=== PATIENT | female | born 1995 | race Caucasian/White ===

== ENCOUNTER 2018-03-07 14:02 | Emergency (ER) | payer MEDICAID ==
[~2018-03-07] VITALS: Ht 167.6 cm; Wt 83.0 kg
[2018-03-07 14:12] VITALS: BP 145/90; PULSE 100; RESP 18; Ht 167.6 cm; Wt 83.0 kg
[2018-03-07] MEDS ORDERED: AMOX500C2 PO (15:10)
[2018-03-07] MEDS ORDERED: IBUP-1542 PO (15:10)
[2018-03-07] MEDS ORDERED: CIPR7.5D BOTH EARS (15:11)
--- NOTE | 2018-03-07 15:40 | ERD ---
ER Documentation Chief Complaint Chief Complaint BILATERAL EAR PAIN WITH DISCHARGE X 3 WEEKS, REDUCED HEARING HPI This is a 23-year-old female with a nonsignificant past medical history presents ED with complaints of bilateral ear pain with discharge times 2 weeks. Patient admits to seeing a whitish discharge coming from bilateral ears. Denies fever, chills, sore throat, nausea, vomiting, diarrhea, constipation, congestion, cough, shortness of breath, trouble breathing no other symptoms. No known drug allergies. Has used eardrops with no relief. Requesting antibiotics pills ROS All systems reviewed and are negative except as per history of present illness. Medications Home Meds Active Scripts Ciprofloxacin Hcl/Dexameth (Ciprodex Otic Suspension) 7.5 Ml Drops.susp, 4 DROP BOTH EARS BID for 7 Days, EA Prov:PABLO WILDE PA-C 03/07/18 Ibuprofen* (Motrin*) 600 Mg Tab, 600 MG PO Q6, #30 TAB Prov:PABLO WILDE PA-C 03/07/18 Amoxicillin* (Amoxicillin*) 500 Mg Cap, 500 MG PO TID for 10 Days, CAP Prov:PABLO WILDE PA-C 03/07/18 Allergies Allergies: Coded Allergies: No Known Allergy (Unverified , 03/07/18) PMhx/Soc Medical and Surgical Hx: pt denies Medical Hx, pt denies Surgical Hx History of Surgery: No Anesthesia Reaction: No Hx Neurological Disorder: No Hx Respiratory Disorders: No Hx Cardiac Disorders: No Hx Psychiatric Problems: No Hx Miscellaneous Medical Probl: No Hx Alcohol Use: No Hx Substance Use: No Hx Tobacco Use: No Smoking Status: Never smoker FmHx Family History: No diabetes Physical Exam Vitals Vital Signs Date Temp Pulse Resp B/P (MAP) Pulse Ox O2 O2 Flow FiO2 Time Delivery Rate 03/07/18 97.7 100 18 145/90 97 14:12 (108) Physical Exam Const: No acute distress Head: Atraumatic Eyes: Normal Conjunctiva ENT: Normal External Ears, Nose and Mouth. There is whitish discharge seen in bilateral ears. There is no tympanic membrane bulging, erythema, purulent air-fluid line seen, no evidence of tympanic membrane perforation, no tonsillar adenopathy, exudate or erythema, Neck: Full range of motion. No meningismus. Resp: Clear to auscultation bilaterally Cardio: Regular rate and rhythm, no murmurs Procedures/MDM ER COURSE: The patient was stable throughout ED course. I kept the patient and/or family informed of laboratory and diagnostic imaging results throughout the emergency room course. The patient was promptly evaluated and a treatment plan was devised based on H&P and other data. This plan was discussed with the patient who agreed and had no further questions or concerns prior to discharge. MEDICAL DECISION MAKING: This is a 23-year-o ld female who presents ED with complaints of bilateral ear pain with discharge times 3 weeks. This is likely an otitis externa. patient is requesting abx pills as it has worked for her in the past. will also treat patient also for otitis media. At this time there is no ENT emergency. No evidence of mastoiditis, serous otitis media, retropharyngeal abscess, peritonsillar abscess, epiglottitis, liquids, others. Vitals are stable patient can be managed with close outpatient follow-up. Advised patient follow-up with her primary care in the next 48 hours. Return to ED with any worsening symptoms DISPOSITION PLAN: We discussed follow up with the patient's primary care doctor within 24 to 48 hours. Patient counseled regarding my diagnostic impression and care plan. Prior to discharge all questions answered. Pt agrees with treatment plan and understands strict return precautions. Precautionary instructions provided including instructions to return to the ER if not improving or for any worsening or changing symptoms or concerns. ExitCare instructions provided. Prior to discharge, patients vital signs have been reviewed SPECIALIST FOLLOW UP RECOMMENDED: None Patient has been advised to follow up with primary care in 1-2 days. Disclaimer: Inadvertent spelling and grammatical errors are likely due to EHR/dictation software use and do not reflect on the overall quality of patient care. Also, please note that the electronic time recorded on this note does not necessarily reflect the actual time of the patient encounter. Departure Diagnosis: Primary Impression: Otalgia, bilateral Condition: Stable Patient Instructions: Otitis Externa (Child), Otitis Media, Abx Tx (Adult) Referrals: COMM[facility]ITY CLIN[facility] YOU HAVE RECEIVED A MEDICAL SCREENING EXAM AND THE RESULTS INDICATE THAT YOU DO NOT HAVE A CONDITION THAT REQUIRES URGENT TREATMENT IN THE EMERGENCY DEPARTMENT. FURTHER EVALUATION AND TREATMENT OF YOUR CONDITION CAN WAIT UNTIL YOU ARE SEEN IN YOUR DOCTORS OFFICE WITHIN THE NEXT 1-2 DAYS. IT IS YOUR RESPONSIBILITY TO MAKE AN APPOINTMENT FOR FOLOW-UP CARE. IF YOU HAVE A PRIMARY DOCTOR --you should call your primary doctor and schedule an appointment IF YOU DO NOT HAVE A PRIMARY DOCTOR YOU CAN CALL OUR PHYSICIAN REFERRAL HOTLINE AT IF YOU CAN NOT AFFORD TO SEE A PHYSICIAN YOU CAN CHOSE FROM THE FOLLOWING [facility] [address] [facility] [address] [facility] [address] [facility] [address] [facility] [address] [facility]. [facility] [address] Additional Instructions: Patient advised to return to the ED immediately for new or worsening symptoms. Patient advised to follow up with primary care provider in the next 24-48 hours. Patient verbalized understanding and agrees with treatment plan and course of action. If patient has no primary care they may follow up with one of the [facility] listed on the following page or one of the options listed below [facility] [address] [place] [id number] or [facility] [address] [place] [address] or [facility] [address] [place] [address] PABLO WILDE PA-C Mar 07, 2018 15:40
== END 2018-03-07 15:45 | disposition home or self-care (01) ==
LOC: FTE 14:02
DX: H92.03 Otalgia, bilateral (principal)
CPT/HCPCS: 99283